=== PATIENT | male | born 1960 | race African-American/Black ===

== ENCOUNTER 2020-05-04 13:16 | Inpatient (IN) | payer OTHER ==
[2020-05-04 14:13] VITALS: BMI 27.8
[2020-05-04] MEDS ORDERED: ONDANSETRON *ODT* 4 MG TABLET SL PRN (15:48)
[2020-05-04] MEDS ORDERED: NICOTINE POLACRILEX 2 MG GUM BUC PRN (15:48)
[2020-05-04] MEDS ORDERED: BISMUTH SUBSALICYLATE 262 MG/15 ML BTL PO PRN (15:48)
[2020-05-04] MEDS ORDERED: IBUPROFEN 400 MG TABLET (FP) PO PRN (15:48)
[2020-05-04] MEDS ORDERED: ACETAMINOPHEN 325 MG TABLET (FP) PO PRN ×2 (15:48)
[2020-05-04] MEDS ORDERED: MAG HYDROX/AL HYDROX/SIMETH 30 ML UNIT-DOSE CUP PO PRN (15:48)
[2020-05-04] MEDS ORDERED: MAGNESIUM HYDROX 2400MG/30ML ORAL SUSPENSION 30 ML CUP PO PRN (15:48)
[2020-05-04] MEDS ORDERED: METHOCARBAMOL 500 MG TABLET PO PRN (15:48)
[2020-05-04] MEDS ORDERED: MENTHOL/PHENOL 1 EACH UD MM PRN (15:48)
[2020-05-04] MEDS ORDERED: MAGNESIUM CITRATE 300 ML BOTTLE PO PRN (15:48)
[2020-05-04] MEDS: chlordiazePOXIDE HCL 25 MG CAPSULE PO SCH ×2 (17:27→22:09)
[2020-05-04] MEDS: hydrOXYzine PAMOATE 25 MG CAPSULE (FP) PO SCH ×2 (19:03→22:10)
[2020-05-04] MEDS: THIAMINE HCL 100 MG TABLET (FP) PO SCH (22:09)
[2020-05-04] MEDS: MELATONIN 5 MG TABLETS PO SCH (22:10)
[2020-05-05] MEDS: chlordiazePOXIDE HCL 25 MG CAPSULE PO PRN (00:32)
[2020-05-05] MEDS: hydrOXYzine PAMOATE 25 MG CAPSULE (FP) PO SCH ×5 (05:40→22:29)
[2020-05-05] MEDS: chlordiazePOXIDE HCL 25 MG CAPSULE PO SCH ×4 (05:40→22:29)
[2020-05-05] MEDS ORDERED: LOPERAMIDE HCL 2 MG CAPSULE PO ONE (10:17)
[2020-05-05 10:19] LABS: HEMATOCRIT 40.5 % (35.4-49); MCH 33.2 pg (25.7-33.7); MCHC 34.6 g/dl (32.0-35.9); MEAN CELL VOLUME 95.7 fl (80-96); MEAN PLT VOLUME 8.5 fl (7.5-11.1); PLATELET COUNT 278 K/MM3 (134-434); POTASSIUM 3.2 mmol/L (3.5-5.1); RBC 4.23 M/mm3 (4.00-5.60); RDW 14.1 % (11.9-15.9); WHITE BLOOD COUNT 7.4 K/mm3 (4.0-10.0)
[2020-05-05 10:24] LABS: CALCIUM 9.6 mg/dL (8.5-10.1)
[2020-05-05 10:25] LABS: ALBUMIN 3.8 g/dl (3.4-5.0); BLOOD UREA NITROGEN 10.8 mg/dL (7-18)
[2020-05-05 10:28] LABS: CREATININE 1.2 mg/dL (0.55-1.3)
[2020-05-05 10:29] LABS: BILIRUBIN,TOTAL 0.7 mg/dL (0.2-1); TOT PROT 7.1 g/dl (6.4-8.2)
[2020-05-05] MEDS: PRENATAL VITAMINS W/ FOLIC ACID TABLET (FP) PO SCH (10:34)
[2020-05-05] MEDS: amLODIPine BESYLATE 10 MG TABLET (FP) PO SCH (10:57)
[2020-05-05] MEDS: CALCIUM 500MG/VIT-D 200 UNITS COMBO TABLET (FP) PO SCH (10:57)
[2020-05-05] MEDS: LISINOPRIL 20 MG TABLET PO SCH (10:57)
[2020-05-05] MEDS ORDERED: POTASSIUM CHLORIDE ORAL LIQUID 20 MEQ/15 ML PO ONE ×2 (11:00→15:00)
[2020-05-05 15:38] LABS: HIV INTERPRETATION NEGATIVE (NEGATIVE)
[2020-05-05] MEDS ORDERED: QUEtiapine FUMARATE 25 MG TABLET PO ONE (22:00)
[2020-05-05] MEDS: TAMSULOSIN HCL 0.4 MG CAP PO SCH (22:28)
[2020-05-05] MEDS: ATORVASTATIN CA 20 MG TABLET (FP) PO SCH (22:29)
[2020-05-05] MEDS: THIAMINE HCL 100 MG TABLET (FP) PO SCH (22:29)
[2020-05-05] MEDS: MELATONIN 5 MG TABLETS PO SCH (22:29)
[2020-05-06] MEDS: chlordiazePOXIDE HCL 25 MG CAPSULE PO SCH ×3 (05:15→17:45)
[2020-05-06] MEDS: hydrOXYzine PAMOATE 25 MG CAPSULE (FP) PO SCH ×5 (05:15→22:23)
[2020-05-06] MEDS: metFORMIN HCL 500 MG TABLET (FP) PO SCH (07:27)
[2020-05-06] MEDS: amLODIPine BESYLATE 10 MG TABLET (FP) PO SCH (10:05)
[2020-05-06] MEDS: LISINOPRIL 20 MG TABLET PO SCH (10:05)
[2020-05-06] MEDS: CALCIUM 500MG/VIT-D 200 UNITS COMBO TABLET (FP) PO SCH (10:05)
[2020-05-06] MEDS: PRENATAL VITAMINS W/ FOLIC ACID TABLET (FP) PO SCH (10:06)
[2020-05-06] MEDS ORDERED: PENICILLIN G BENZATHINE 2,400,000 UNIT/4 ML PFS IM ONE (12:00)
[2020-05-06] MEDS: ATORVASTATIN CA 20 MG TABLET (FP) PO SCH (22:23)
[2020-05-06] MEDS: TAMSULOSIN HCL 0.4 MG CAP PO SCH (22:23)
[2020-05-06] MEDS: THIAMINE HCL 100 MG TABLET (FP) PO SCH (22:23)
[2020-05-06] MEDS: MELATONIN 5 MG TABLETS PO SCH (22:23)
[2020-05-06] MEDS: chlordiazePOXIDE HCL 25 MG CAPSULE PO PRN (22:24)
[2020-05-07] MEDS ORDERED: chlordiazePOXIDE HCL 10 MG CAPSULE PO PRN
[2020-05-07] MEDS: chlordiazePOXIDE HCL 25 MG CAPSULE PO SCH (00:08)
[2020-05-07] MEDS: hydrOXYzine PAMOATE 25 MG CAPSULE (FP) PO SCH ×5 (06:09→22:12)
[2020-05-07] MEDS: chlordiazePOXIDE HCL 10 MG CAPSULE PO SCH ×4 (06:11→22:12)
[2020-05-07] MEDS: metFORMIN HCL 500 MG TABLET (FP) PO SCH (06:12)
[2020-05-07] MEDS: PRENATAL VITAMINS W/ FOLIC ACID TABLET (FP) PO SCH (10:14)
[2020-05-07] MEDS: amLODIPine BESYLATE 10 MG TABLET (FP) PO SCH (10:14)
[2020-05-07] MEDS: CALCIUM 500MG/VIT-D 200 UNITS COMBO TABLET (FP) PO SCH (10:14)
[2020-05-07] MEDS: LISINOPRIL 20 MG TABLET PO SCH (10:14)
[2020-05-07] MEDS: POTASSIUM CHLORIDE TABS 20 MEQ TABLET.ER (FP) PO SCH ×2 (13:57→22:12)
[2020-05-07] MEDS: MELATONIN 5 MG TABLETS PO SCH (22:12)
[2020-05-07] MEDS: TAMSULOSIN HCL 0.4 MG CAP PO SCH (22:12)
[2020-05-07] MEDS: QUEtiapine FUMARATE 25 MG TABLET PO SCH (22:12)
[2020-05-07] MEDS: ATORVASTATIN CA 20 MG TABLET (FP) PO SCH (22:12)
[2020-05-07] MEDS: THIAMINE HCL 100 MG TABLET (FP) PO SCH (22:15)
[2020-05-08] MEDS: chlordiazePOXIDE HCL 10 MG CAPSULE PO SCH ×2 (05:37→18:12)
[2020-05-08] MEDS: hydrOXYzine PAMOATE 25 MG CAPSULE (FP) PO SCH ×5 (05:37→22:18)
[2020-05-08] MEDS: metFORMIN HCL 500 MG TABLET (FP) PO SCH (06:21)
[2020-05-08] MEDS: CALCIUM 500MG/VIT-D 200 UNITS COMBO TABLET (FP) PO SCH (10:26)
[2020-05-08] MEDS: LISINOPRIL 20 MG TABLET PO SCH (10:26)
[2020-05-08] MEDS: PRENATAL VITAMINS W/ FOLIC ACID TABLET (FP) PO SCH (10:26)
[2020-05-08] MEDS: POTASSIUM CHLORIDE TABS 20 MEQ TABLET.ER (FP) PO SCH ×2 (10:26→22:18)
[2020-05-08] MEDS: amLODIPine BESYLATE 10 MG TABLET (FP) PO SCH (10:26)
[2020-05-08 10:41] LABS: POTASSIUM 3.5 mmol/L (3.5-5.1)
[2020-05-08 10:50] LABS: ALBUMIN 4.1 g/dl (3.4-5.0); BLOOD UREA NITROGEN 8.7 mg/dL (7-18); CALCIUM 9.4 mg/dL (8.5-10.1); CREATININE 0.9 mg/dL (0.55-1.3)
[2020-05-08 10:51] LABS: TOT PROT 7.9 g/dl (6.4-8.2)
[2020-05-08 10:52] LABS: BILIRUBIN,TOTAL 0.4 mg/dL (0.2-1)
[2020-05-08] MEDS: busPIRone HCL 5 MG TABLET PO SCH ×2 (14:15→22:18)
[2020-05-08] MEDS: THIAMINE HCL 100 MG TABLET (FP) PO SCH (22:18)
[2020-05-08] MEDS: TAMSULOSIN HCL 0.4 MG CAP PO SCH (22:18)
[2020-05-08] MEDS: ATORVASTATIN CA 20 MG TABLET (FP) PO SCH (22:18)
[2020-05-08] MEDS: QUEtiapine FUMARATE 25 MG TABLET PO SCH (22:18)
[2020-05-08] MEDS: MELATONIN 5 MG TABLETS PO SCH (22:19)
[2020-05-09] MEDS ORDERED: chlordiazePOXIDE HCL 10 MG CAPSULE PO ONE (05:00)
[2020-05-09] MEDS: hydrOXYzine PAMOATE 25 MG CAPSULE (FP) PO SCH (06:25)
[2020-05-09] MEDS: busPIRone HCL 5 MG TABLET PO SCH (06:25)
[2020-05-09] MEDS: metFORMIN HCL 500 MG TABLET (FP) PO SCH (06:25)
[2020-05-09 10:09] VITALS: BP 140/77; PULSE 69; TEMP 96.8
== END 2020-05-09 12:18 | disposition home or self-care (01) | DRG 774 ==
LOC: YASAS 13:16 → Y6N 15:04
PROVIDERS: ADMIT Allergy & Immunology; ATTEND Allergy & Immunology
PROC: HZ2ZZZZ Detoxification Services for Substance Abuse Treatment (ICD-10-PCS; principal; 2020-05-04)
DX: F10.230 Alcohol dependence with withdrawal, uncomplicated (principal); F14.10 Cocaine abuse, uncomplicated; F13.10 Sedative, hypnotic or anxiolytic abuse, uncomplicated; F12.10 Cannabis abuse, uncomplicated; F17.210 Nicotine dependence, cigarettes, uncomplicated; F19.280 Other psychoactive substance dependence with psychoactive substance-induced anxiety disorder; F19.282 Other psychoactive substance dependence with psychoactive substance-induced sleep disorder; F19.24 Other psychoactive substance dependence with psychoactive substance-induced mood disorder; E78.5 Hyperlipidemia, unspecified; E11.9 Type 2 diabetes mellitus without complications; Z79.84 Long term (current) use of oral hypoglycemic drugs; I25.10 Atherosclerotic heart disease of native coronary artery without angina pectoris; I10 Essential (primary) hypertension; Z98.890 Other specified postprocedural states; Z56.0 Unemployment, unspecified
CPT/HCPCS: 36415; 80053; 82962; 84132; 85027; 86593; 86780; 87389; C9803; U0003; U0005

== ENCOUNTER 2020-06-10 18:11 | Inpatient (IN) | payer OTHER ==
[2020-06-10] MEDS ORDERED: HALOPERIDOL LACTATE 5 MG/ML IM ONE (19:26)
[2020-06-10] MEDS ORDERED: LORazepam 2 MG/ML SDV VIAL IM ONE (19:27)
[2020-06-10] MEDS ORDERED: LORazepam 2 MG/ML SDV VIAL ONE ×2 (19:28→20:57)
[2020-06-10] MEDS ORDERED: HALOPERIDOL LACTATE 5 MG/ML ONE (19:28)
[2020-06-10 20:11] LABS: BASO % 0.6 % (0-2.0); EOS % 0.6 % (0-4.5); HEMATOCRIT 41.9 % (35.4-49); HEMOGLOBIN 14.3 GM/dL (11.7-16.9); LYMPH % 50.9 % (8-40); MCH 32.4 pg (25.7-33.7); MCHC 34.1 g/dl (32.0-35.9); MEAN PLT VOLUME 8.6 fl (7.5-11.1); MONO % 8.6 % (3.8-10.2); NEUT % 39.3 % (42.8-82.8); PLATELET COUNT 193 K/MM3 (134-434); RBC 4.41 M/mm3 (4.00-5.60); RDW 13.5 % (11.9-15.9); WHITE BLOOD COUNT 9.3 K/mm3 (4.0-10.0)
[2020-06-10 20:24] LABS: INR 0.92 (0.83-1.09); PROTHROMBIN TIME (PATIENT) 11.2 SEC (9.7-13.0)
[2020-06-10 20:33] LABS: CHLORIDE 104 mmol/L (98-107); SODIUM 145 mmol/L (136-145)
[2020-06-10 20:35] LABS: BLOOD UREA NITROGEN 9.8 mg/dL (7-18); CALCIUM 9.3 mg/dL (8.5-10.1); CO2 27 mmol/L (21-32); GLUCOSE,RANDOM 116 mg/dL (74-106)
[2020-06-10 20:38] LABS: CREATININE 1.1 mg/dL (0.55-1.3); SGOT/AST 45 U/L (15-37); SGPT/ALT 37 U/L (13-61)
[2020-06-10 20:40] LABS: BILIRUBIN,TOTAL 0.4 mg/dL (0.2-1); TOT PROT 7.8 g/dl (6.4-8.2)
[2020-06-10 20:41] LABS: ALK PHOS 72 U/L (45-117); LACTIC ACID 5.3 mmol/L (0.4-2.0)
[2020-06-10] MEDS ORDERED: LACTATED RINGERS SOLUTION 1000 ML INFUS.BAG IV ONE (20:48)
[2020-06-10 20:50] LABS: ANION GAP 13 MMOL/L (8-16)
[2020-06-10] MEDS ORDERED: LORazepam 2 MG/ML SDV VIAL IVPUSH ONE (20:51)
[2020-06-10 21:16] LABS: PH,URINE 7.5 (5.0-8.0); URINE APPEARANCE CLEAR; URINE BILIRUBIN NEGATIVE (NEGATIVE); URINE COLOR YELLOW; URINE GLUCOSE (UA) NEGATIVE (NEGATIVE); URINE KETONE NEGATIVE (NEGATIVE); URINE LEUK ESTERASE NEGATIVE (NEGATIVE); URINE NITRITE NEGATIVE (NEGATIVE); URINE PROTEIN NEGATIVE (NEGATIVE); URINE UROBILINOGEN 0.2 mg/dL (0.2-1.0)
[2020-06-10] MEDS ORDERED: KCL 10 MEQ IVPB 10 MEQ/100 ML INFUS.BAG IVPB SCH (21:30)
[2020-06-10] MEDS ORDERED: SODIUM CHLORIDE 1,000 ML IV STA (22:44)
[2020-06-10] MEDS ORDERED: KCL 10 MEQ IVPB 10 MEQ/100 ML INFUS.BAG IVPB ONE (22:53)
[2020-06-10] MEDS: KCL 10 MEQ IVPB 10 MEQ/100 ML INFUS.BAG IVPB SCH (22:59)
[2020-06-11 01:02] LABS: LACTIC ACID 3.7 mmol/L (0.4-2.0)
[2020-06-11] MEDS ORDERED: FOLIC ACID INJECTION - 1 MG, THIAMINE HCL 100 MG, MULTIVIT INJECTION ADULT 10 ML in SOD... IVPB ONE (01:21)
[2020-06-11 01:38] LABS: COCAINE, UR NEGATIVE ng/ml (CUTOFF=300); METHADONE, UR NEGATIVE ng/ml (CUTOFF=300); OPIATES, URI NEGATIVE ng/ml (CUTOFF=300); PHENCYCLIDINE,URINE NEGATIVE ng/ml (CUTOFF=25); URINE BENZODIAZEPINES NEGATIVE ng/ml (CUTOFF=200)
[2020-06-11 01:39] LABS: URINE AMPHETAMINES NEGATIVE ng/ml (CUTOFF=500); URINE BARBITURATES NEGATIVE ng/ml (CUTOFF=200)
[2020-06-11] MEDS ORDERED: KCL 10 MEQ IVPB 10 MEQ/100 ML INFUS.BAG IVPB ONE ×5 (03:00→18:03)
[2020-06-11] MEDS: KCL 10 MEQ IVPB 10 MEQ/100 ML INFUS.BAG IVPB SCH ×7 (03:09→23:40)
[2020-06-11] MEDS: INSULIN SLIDING SCALE (NOVOLOG) 1 VIAL SQ SCH ×4 (06:44→21:28)
[2020-06-11] MEDS ORDERED: SODIUM CHLORIDE 1,000 ML IV SCH (07:00)
[2020-06-11] MEDS ORDERED: TAMSULOSIN HCL 0.4 MG CAP ONE (07:57)
[2020-06-11] MEDS ORDERED: LORazepam 2 MG/ML SDV VIAL ONE ×2 (08:01→12:09)
[2020-06-11] MEDS: TAMSULOSIN HCL 0.4 MG CAP PO SCH (08:09)
[2020-06-11] MEDS: LORazepam 2 MG/ML SDV VIAL IVPUSH PRN ×3 (08:09→15:34)
[2020-06-11] MEDS ORDERED: MAGNESIUM SULF 50% (8.12 MEQ/2 ML-1 GM VIAL) IVPB STA (08:21)
[2020-06-11] MEDS ORDERED: THIAMINE HCL 100 MG TABLET (FP) ONE (09:22)
[2020-06-11] MEDS ORDERED: FOLIC ACID 1 MG TABLET (FP) ONE (09:22)
[2020-06-11] MEDS ORDERED: MAGNESIUM SULFATE IN WATER 2 GM/50 ML IVPB IVPB ONE (09:23)
[2020-06-11] MEDS ORDERED: ENOXAPARIN NA (PORCINE) 40 MG/0.4 ML DISP.SYRIN SQ ONE (09:23)
[2020-06-11] MEDS: ENOXAPARIN NA (PORCINE) 40 MG/0.4 ML DISP.SYRIN SQ SCH (09:29)
[2020-06-11] MEDS: FOLIC ACID 1 MG TABLET (FP) PO SCH (09:29)
[2020-06-11] MEDS ORDERED: THIAMINE HCL 100 MG TABLET (FP) PO SCH (10:00)
[2020-06-11] MEDS ORDERED: chlordiazePOXIDE HCL 25 MG CAPSULE PO SCH (11:00)
[2020-06-11] MEDS ORDERED: chlordiazePOXIDE HCL 25 MG CAPSULE PO PRN (12:27)
[2020-06-11] MEDS ORDERED: POTASSIUM CHLORIDE ORAL LIQUID 20 MEQ/15 ML PO ONE (12:36)
[2020-06-11] MEDS ORDERED: chlordiazePOXIDE HCL 25 MG CAPSULE ONE ×3 (12:44→16:17)
[2020-06-11] MEDS ORDERED: POTASSIUM CHLORIDE ORAL LIQUID 20 MEQ/15 ML ONE (12:44)
[2020-06-11 13:31] LABS: BASO % 0.6 % (0-2.0); EOS % 0.9 % (0-4.5); HEMATOCRIT 38.9 % (35.4-49); HEMOGLOBIN 13.3 GM/dL (11.7-16.9); MCH 32.4 pg (25.7-33.7); MCHC 34.1 g/dl (32.0-35.9); MEAN CELL VOLUME 94.9 fl (80-96); MEAN PLT VOLUME 8.5 fl (7.5-11.1); MONO % 5.5 % (3.8-10.2); PLATELET COUNT 186 K/MM3 (134-434); RDW 13.9 % (11.9-15.9)
[2020-06-11 13:57] LABS: ALBUMIN 3.7 g/dl (3.4-5.0); BLOOD UREA NITROGEN 8.2 mg/dL (7-18); CALCIUM 8.7 mg/dL (8.5-10.1); MAGNESIUM 2.2 mg/dL (1.8-2.4)
[2020-06-11 13:59] LABS: CREATININE 0.9 mg/dL (0.55-1.3)
[2020-06-11 14:00] LABS: PHOSPHOROUS 2.7 mg/dL (2.5-4.9)
[2020-06-11 14:02] LABS: BILIRUBIN,TOTAL 0.6 mg/dL (0.2-1); TOT PROT 7.2 g/dl (6.4-8.2)
[2020-06-11] MEDS ORDERED: LACTATED RINGERS SOLUTION 1,000 ML with POTASSIUM CHLORIDE 20 MEQ IV ONE (15:09)
[2020-06-11] MEDS: CALCIUM 500MG/VIT-D 200 UNITS COMBO TABLET (FP) PO SCH ×2 (16:15→21:23)
[2020-06-11] MEDS: chlordiazePOXIDE HCL 25 MG CAPSULE PO PRN (16:16)
[2020-06-11] MEDS: chlordiazePOXIDE HCL 25 MG CAPSULE PO SCH ×3 (16:22→22:19)
[2020-06-11 20:29] VITALS: BMI 27.2
[2020-06-11] MEDS: THIAMINE HCL 100 MG TABLET (FP) PO SCH (21:23)
[2020-06-11] MEDS: ATORVASTATIN CA 20 MG TABLET (FP) PO SCH (21:23)
[2020-06-11 21:51] LABS: CHLORIDE 106 mmol/L (98-107); SODIUM 141 mmol/L (136-145)
[2020-06-11 21:53] LABS: BLOOD UREA NITROGEN 6.6 mg/dL (7-18); CALCIUM 8.8 mg/dL (8.5-10.1); CO2 26 mmol/L (21-32); GLUCOSE,RANDOM 83 mg/dL (74-106)
[2020-06-11 21:56] LABS: CREATININE 0.8 mg/dL (0.55-1.3)
[2020-06-11 21:57] LABS: ANION GAP 9 MMOL/L (8-16)
[2020-06-11] MEDS ORDERED: LACTULOSE 20 GM/30 ML UDC (FOR ORAL USE ONLY) PO SCH (22:00)
[2020-06-11] MEDS ORDERED: POTASSIUM CHLORIDE TABS 20 MEQ TABLET.ER (FP) PO ONE (22:06)
[2020-06-12] MEDS: KCL 10 MEQ IVPB 10 MEQ/100 ML INFUS.BAG IVPB SCH (00:45)
[2020-06-12 03:48] LABS: CALCIUM 8.8 mg/dL (8.5-10.1)
[2020-06-12 03:49] LABS: BLOOD UREA NITROGEN 5.9 mg/dL (7-18)
[2020-06-12 03:53] LABS: CREATININE 0.8 mg/dL (0.55-1.3)
[2020-06-12] MEDS: chlordiazePOXIDE HCL 25 MG CAPSULE PO SCH ×4 (05:48→23:46)
[2020-06-12] MEDS: CALCIUM 500MG/VIT-D 200 UNITS COMBO TABLET (FP) PO SCH ×3 (05:49→21:25)
[2020-06-12] MEDS ORDERED: POTASSIUM CHLORIDE TABS 20 MEQ TABLET.ER (FP) PO ONE (06:00)
[2020-06-12] MEDS ORDERED: KCL 10 MEQ IVPB 10 MEQ/100 ML INFUS.BAG IVPB SCH (06:00)
[2020-06-12] MEDS: INSULIN SLIDING SCALE (NOVOLOG) 1 VIAL SQ SCH ×4 (06:02→21:26)
[2020-06-12 07:47] LABS: CALCIUM 9.2 mg/dL (8.5-10.1)
[2020-06-12 07:48] LABS: BLOOD UREA NITROGEN 5.4 mg/dL (7-18); HEMATOCRIT 39.6 % (35.4-49); MAGNESIUM 1.6 mg/dL (1.8-2.4); MCH 33.1 pg (25.7-33.7); MCHC 35.4 g/dl (32.0-35.9); MEAN CELL VOLUME 93.7 fl (80-96); MEAN PLT VOLUME 8.8 fl (7.5-11.1); PLATELET COUNT 196 K/MM3 (134-434); RBC 4.23 M/mm3 (4.00-5.60); RDW 13.7 % (11.9-15.9); WHITE BLOOD COUNT 7.9 K/mm3 (4.0-10.0)
[2020-06-12 07:51] LABS: CREATININE 0.9 mg/dL (0.55-1.3)
[2020-06-12] MEDS ORDERED: MAGNESIUM SULF 50% (8.12 MEQ/2 ML-1 GM VIAL) IVPB ONE (08:23)
[2020-06-12] MEDS ORDERED: DEXTROSE 5%-0.45% SALINE 1,000 ML IV SCH (08:30)
[2020-06-12] MEDS: TAMSULOSIN HCL 0.4 MG CAP PO SCH (08:41)
[2020-06-12] MEDS: ENOXAPARIN NA (PORCINE) 40 MG/0.4 ML DISP.SYRIN SQ SCH (10:05)
[2020-06-12] MEDS: THIAMINE HCL 100 MG TABLET (FP) PO SCH ×2 (10:06→21:25)
[2020-06-12] MEDS: POTASSIUM CHLORIDE TABS 20 MEQ TABLET.ER (FP) PO SCH ×2 (10:06→21:25)
[2020-06-12] MEDS: FOLIC ACID 1 MG TABLET (FP) PO SCH (10:06)
[2020-06-12] MEDS: PANTOPRAZOLE 20 MG TABLET PO SCH (10:06)
[2020-06-12 10:23] LABS: BASO % 0.5 % (0-2.0); EOS % 2.5 % (0-4.5); HEMATOCRIT 39.8 % (35.4-49); HEMOGLOBIN 13.9 GM/dL (11.7-16.9); LYMPH % 30.8 % (8-40); MEAN CELL VOLUME 94.5 fl (80-96); MEAN PLT VOLUME 8.4 fl (7.5-11.1); MONO % 9.3 % (3.8-10.2); NEUT % 56.9 % (42.8-82.8); PLATELET COUNT 193 K/MM3 (134-434); RBC 4.22 M/mm3 (4.00-5.60); RDW 13.5 % (11.9-15.9); WHITE BLOOD COUNT 7.3 K/mm3 (4.0-10.0)
[2020-06-12 10:47] LABS: ALBUMIN 3.7 g/dl (3.4-5.0); CALCIUM 9.3 mg/dL (8.5-10.1)
[2020-06-12 10:48] LABS: BLOOD UREA NITROGEN 5.4 mg/dL (7-18); MAGNESIUM 2.4 mg/dL (1.8-2.4)
[2020-06-12 10:51] LABS: CREATININE 0.8 mg/dL (0.55-1.3); PHOSPHOROUS 2.5 mg/dL (2.5-4.9)
[2020-06-12 10:52] LABS: BILIRUBIN,TOTAL 1.3 mg/dL (0.2-1); TOT PROT 7.3 g/dl (6.4-8.2)
[2020-06-12] MEDS ORDERED: MELATONIN 5 MG TABLETS PO PRN (12:23)
[2020-06-12] MEDS ORDERED: DEXTROSE 5%-0.45% SALINE 990 ML with POTASSIUM CHLORIDE 20 MEQ IV SCH (14:55)
[2020-06-12] MEDS: D5-1/2NS+20 MEQ KCL - 20 MEQ/1,000 ML INFUS.BAG IV SCH (16:58)
[2020-06-12] MEDS: ATORVASTATIN CA 20 MG TABLET (FP) PO SCH (21:25)
[2020-06-13] MEDS ORDERED: chlordiazePOXIDE HCL 25 MG CAPSULE PO SCH ×2 (05:00)
[2020-06-13] MEDS: D5-1/2NS+20 MEQ KCL - 20 MEQ/1,000 ML INFUS.BAG IV SCH (05:12)
[2020-06-13] MEDS: CALCIUM 500MG/VIT-D 200 UNITS COMBO TABLET (FP) PO SCH (05:12)
[2020-06-13] MEDS: INSULIN SLIDING SCALE (NOVOLOG) 1 VIAL SQ SCH (06:27)
[2020-06-13 08:45] LABS: HEMOGLOBIN 14.1 GM/dL (11.7-16.9); MCHC 34.3 g/dl (32.0-35.9); MEAN CELL VOLUME 96.2 fl (80-96); MEAN PLT VOLUME 8.9 fl (7.5-11.1); PLATELET COUNT 195 K/MM3 (134-434); RBC 4.26 M/mm3 (4.00-5.60); RDW 13.5 % (11.9-15.9); WHITE BLOOD COUNT 8.6 K/mm3 (4.0-10.0)
[2020-06-13 09:03] LABS: CALCIUM 9.2 mg/dL (8.5-10.1)
[2020-06-13 09:04] LABS: ALBUMIN 3.8 g/dl (3.4-5.0); BLOOD UREA NITROGEN 5.8 mg/dL (7-18); MAGNESIUM 1.8 mg/dL (1.8-2.4)
[2020-06-13 09:07] LABS: CREATININE 0.9 mg/dL (0.55-1.3); PHOSPHOROUS 2.2 mg/dL (2.5-4.9)
[2020-06-13 09:08] LABS: BILIRUBIN,TOTAL 1.1 mg/dL (0.2-1); TOT PROT 7.5 g/dl (6.4-8.2)
[2020-06-13] MEDS: ENOXAPARIN NA (PORCINE) 40 MG/0.4 ML DISP.SYRIN SQ SCH (09:22)
[2020-06-13] MEDS: chlordiazePOXIDE HCL 25 MG CAPSULE PO PRN (09:22)
[2020-06-13] MEDS: PANTOPRAZOLE 20 MG TABLET PO SCH (09:24)
[2020-06-13] MEDS: THIAMINE HCL 100 MG TABLET (FP) PO SCH (09:24)
[2020-06-13] MEDS: FOLIC ACID 1 MG TABLET (FP) PO SCH (09:24)
[2020-06-13] MEDS: TAMSULOSIN HCL 0.4 MG CAP PO SCH (09:24)
[2020-06-13] MEDS ORDERED: amLODIPine BESYLATE 10 MG TABLET (FP) PO SCH (10:00)
[2020-06-13] MEDS ORDERED: POTASSIUM CHLORIDE TABS 20 MEQ TABLET.ER (FP) PO SCH (10:00)
[2020-06-13] MEDS ORDERED: LISINOPRIL 20 MG TABLET PO SCH (10:00)
[2020-06-13 12:15] VITALS: BP 140/80; PULSE 70; TEMP 98
[2020-06-14] MEDS ORDERED: chlordiazePOXIDE HCL 10 MG CAPSULE PO PRN
[2020-06-14] MEDS ORDERED: chlordiazePOXIDE 5 MG CAPSULE PO PRN
[2020-06-14] MEDS ORDERED: chlordiazePOXIDE 5 MG CAPSULE PO SCH (05:00)
[2020-06-14] MEDS ORDERED: chlordiazePOXIDE HCL 10 MG CAPSULE PO SCH (05:00)
[2020-06-15] MEDS ORDERED: chlordiazePOXIDE HCL 10 MG CAPSULE PO SCH (05:00)
[2020-06-15] MEDS ORDERED: chlordiazePOXIDE 5 MG CAPSULE PO SCH (05:00)
[2020-06-15 14:09] LABS: HEP B CORE AB, TOT Positive (Negative)
[2020-06-16] MEDS ORDERED: chlordiazePOXIDE 5 MG CAPSULE PO ONE ×2 (05:00)
[2020-06-19 15:14] LABS: RENIN ACTIVITY(PRA) 2.653 ng/mL/hr (0.167-5.380)
== END 2020-06-13 11:43 | disposition left against medical advice (07) | DRG 770 ==
LOC: JER 18:11 → JERBED 22:43 → OBSVTOIN 06-11 15:42 → J6S 06-11 19:38
PROVIDERS: ADMIT Hospitalist; ATTEND Internal Medicine
DX: F10.220 Alcohol dependence with intoxication, uncomplicated (principal); G92 Toxic encephalopathy; K92.0 Hematemesis; E87.2 Acidosis; E87.6 Hypokalemia; I10 Essential (primary) hypertension; E11.9 Type 2 diabetes mellitus without complications; F17.210 Nicotine dependence, cigarettes, uncomplicated; Z79.84 Long term (current) use of oral hypoglycemic drugs; N40.0 Benign prostatic hyperplasia without lower urinary tract symptoms; E46 Unspecified protein-calorie malnutrition; E86.0 Dehydration; I25.10 Atherosclerotic heart disease of native coronary artery without angina pectoris; E27.9 Disorder of adrenal gland, unspecified; E83.42 Hypomagnesemia; K86.89 Other specified diseases of pancreas; R74.01 Elevation of levels of liver transaminase levels; K72.90 Hepatic failure, unspecified without coma
CPT/HCPCS: 36415; 70450-TC; 71045-TC-FY; 71260-TC; 72125-TC; 73523-TC-FY; 74177-TC; 80048; 80053; 80307; 81003; 82088; 82140; 82962; 83605; 83735; 84100; 84244; 84484; 85025; 85027; 85610; 85730; 86704; 86706; 86707; 86708; 86709; 86803; 86850; 86900; 86901; 87086; 87340; 93005; 93010; 97116-GP; 97161-GP; 99291; C9803; G0378; Q9967; U0003; U0005

== ENCOUNTER 2020-07-27 20:33 | Inpatient (IN) | payer OTHER ==
[2020-07-27 22:21] VITALS: BMI 27.1
[2020-07-27] MEDS ORDERED: ONDANSETRON *ODT* 4 MG TABLET SL PRN (22:33)
[2020-07-27] MEDS ORDERED: MAGNESIUM CITRATE 300 ML BOTTLE PO PRN (22:33)
[2020-07-27] MEDS ORDERED: MAGNESIUM HYDROX 2400MG/30ML ORAL SUSPENSION 30 ML CUP PO PRN (22:33)
[2020-07-27] MEDS ORDERED: MENTHOL/PHENOL 1 EACH UD MM PRN (22:33)
[2020-07-27] MEDS ORDERED: BISMUTH SUBSALICYLATE 524 MG/30 ML PO PRN (22:33)
[2020-07-27] MEDS ORDERED: NICOTINE POLACRILEX 2 MG GUM BUC PRN (22:33)
[2020-07-27] MEDS ORDERED: hydrOXYzine PAMOATE 25 MG CAPSULE (FP) PO PRN (22:33)
[2020-07-27] MEDS ORDERED: MAG HYDROX/AL HYDROX/SIMETH 30 ML UNIT-DOSE CUP PO PRN (22:33)
[2020-07-27] MEDS ORDERED: TRIMETHOBENZAMIDE HCL 200MG/2ML INJ IM ONE (22:35)
[2020-07-28] MEDS: diazePAM 5 MG TABLET PO SCH ×5 (01:19→22:06)
[2020-07-28] MEDS: IBUPROFEN 400 MG TABLET (FP) PO PRN (01:23)
[2020-07-28] MEDS: metFORMIN HCL 500 MG TABLET (FP) PO SCH (06:54)
[2020-07-28] MEDS: PRENATAL VITAMINS W/ FOLIC ACID TABLET (FP) PO SCH (09:22)
[2020-07-28] MEDS: LISINOPRIL 20 MG TABLET PO SCH (09:22)
[2020-07-28 10:43] LABS: HEMATOCRIT 41.2 % (35.4-49); HEMOGLOBIN 13.8 GM/dL (11.7-16.9); MCH 31.6 pg (25.7-33.7); MCHC 33.4 g/dl (32.0-35.9); MEAN CELL VOLUME 94.7 fl (80-96); MEAN PLT VOLUME 8.4 fl (7.5-11.1); PLATELET COUNT 217 10^3/uL (134-434); RBC 4.35 M/mm3 (4.00-5.60); RDW 13.9 % (11.9-15.9); WHITE BLOOD COUNT 5.7 K/mm3 (4.0-10.0)
[2020-07-28 10:45] LABS: CHLORIDE 109 mmol/L (98-107); SODIUM 146 mmol/L (136-145)
[2020-07-28 11:18] LABS: BLOOD UREA NITROGEN 9.7 mg/dL (7-18)
[2020-07-28 11:33] LABS: CALCIUM 8.6 mg/dL (8.5-10.1)
[2020-07-28 11:34] LABS: ALBUMIN 3.6 g/dl (3.4-5.0)
[2020-07-28 11:37] LABS: CREATININE 0.9 mg/dL (0.55-1.3)
[2020-07-28 11:38] LABS: GLUCOSE,RANDOM 75 mg/dL (74-106); SGOT/AST 78 U/L (15-37)
[2020-07-28 11:39] LABS: CO2 25 mmol/L (21-32); TOT PROT 6.9 g/dl (6.4-8.2)
[2020-07-28 11:40] LABS: ALK PHOS 55 U/L (45-117)
[2020-07-28 11:45] LABS: SGPT/ALT 40 U/L (13-61)
[2020-07-28 11:49] LABS: ANION GAP 12 MMOL/L (8-16)
[2020-07-28] MEDS ORDERED: POTASSIUM CHLORIDE ORAL LIQUID 20 MEQ/15 ML PO ONE (11:54)
[2020-07-28 11:58] LABS: BILIRUBIN,TOTAL 0.4 mg/dL (0.2-1)
[2020-07-28] MEDS: diazePAM 5 MG TABLET PO PRN ×2 (11:58→19:39)
[2020-07-28] MEDS: busPIRone HCL 5 MG TABLET PO SCH ×2 (15:31→22:05)
[2020-07-28] MEDS: POTASSIUM CHLORIDE ORAL LIQUID 20 MEQ/15 ML PO SCH (22:03)
[2020-07-28] MEDS: ATORVASTATIN CA 20 MG TABLET (FP) PO SCH (22:05)
[2020-07-28] MEDS: THIAMINE HCL 100 MG TABLET (FP) PO SCH (22:05)
[2020-07-28] MEDS: QUEtiapine FUMARATE 25 MG TABLET PO SCH (22:05)
[2020-07-28] MEDS: MELATONIN 5 MG TABLETS PO SCH (22:05)
[2020-07-28] MEDS: TAMSULOSIN HCL 0.4 MG CAP PO SCH (22:05)
[2020-07-29] MEDS: busPIRone HCL 5 MG TABLET PO SCH ×3 (05:28→22:06)
[2020-07-29] MEDS: diazePAM 5 MG TABLET PO SCH ×3 (05:28→22:07)
[2020-07-29] MEDS: IBUPROFEN 400 MG TABLET (FP) PO PRN (05:30)
[2020-07-29] MEDS: metFORMIN HCL 500 MG TABLET (FP) PO SCH (07:06)
[2020-07-29] MEDS: METHOCARBAMOL 500 MG TABLET PO PRN ×2 (10:15→17:26)
[2020-07-29] MEDS: POTASSIUM CHLORIDE ORAL LIQUID 20 MEQ/15 ML PO SCH ×2 (10:15→22:06)
[2020-07-29] MEDS: PRENATAL VITAMINS W/ FOLIC ACID TABLET (FP) PO SCH (10:15)
[2020-07-29] MEDS: diazePAM 5 MG TABLET PO PRN ×2 (10:15→17:26)
[2020-07-29] MEDS: LISINOPRIL 20 MG TABLET PO SCH (10:15)
[2020-07-29] MEDS: ATORVASTATIN CA 20 MG TABLET (FP) PO SCH (22:06)
[2020-07-29] MEDS: QUEtiapine FUMARATE 25 MG TABLET PO SCH (22:06)
[2020-07-29] MEDS: THIAMINE HCL 100 MG TABLET (FP) PO SCH (22:06)
[2020-07-29] MEDS: TAMSULOSIN HCL 0.4 MG CAP PO SCH (22:06)
[2020-07-29] MEDS: MELATONIN 5 MG TABLETS PO SCH (22:28)
[2020-07-30] MEDS: diazePAM 5 MG TABLET PO SCH ×2 (05:19→17:36)
[2020-07-30] MEDS: busPIRone HCL 5 MG TABLET PO SCH ×3 (05:19→22:02)
[2020-07-30] MEDS: METHOCARBAMOL 500 MG TABLET PO PRN ×3 (05:19→16:36)
[2020-07-30] MEDS: metFORMIN HCL 500 MG TABLET (FP) PO SCH (07:17)
[2020-07-30] MEDS: IBUPROFEN 400 MG TABLET (FP) PO PRN ×3 (08:42→22:05)
[2020-07-30] MEDS: PRENATAL VITAMINS W/ FOLIC ACID TABLET (FP) PO SCH (10:15)
[2020-07-30] MEDS: LISINOPRIL 20 MG TABLET PO SCH (10:15)
[2020-07-30] MEDS ORDERED: POTASSIUM CHLORIDE ORAL LIQUID 20 MEQ/15 ML PO ONE ×2 (12:27→22:00)
[2020-07-30] MEDS: TAMSULOSIN HCL 0.4 MG CAP PO SCH (22:02)
[2020-07-30] MEDS: ATORVASTATIN CA 20 MG TABLET (FP) PO SCH (22:02)
[2020-07-30] MEDS: MELATONIN 5 MG TABLETS PO SCH (22:02)
[2020-07-30] MEDS: QUEtiapine FUMARATE 25 MG TABLET PO SCH (22:02)
[2020-07-30] MEDS: THIAMINE HCL 100 MG TABLET (FP) PO SCH (22:02)
[2020-07-30] MEDS: diazePAM 5 MG TABLET PO PRN (22:06)
[2020-07-31] MEDS: busPIRone HCL 5 MG TABLET PO SCH (05:39)
[2020-07-31] MEDS: METHOCARBAMOL 500 MG TABLET PO PRN (05:41)
[2020-07-31] MEDS ORDERED: diazePAM 5 MG TABLET PO ONE (06:00)
[2020-07-31] MEDS: metFORMIN HCL 500 MG TABLET (FP) PO SCH (07:03)
[2020-07-31] MEDS: PRENATAL VITAMINS W/ FOLIC ACID TABLET (FP) PO SCH (09:02)
[2020-07-31] MEDS: LISINOPRIL 20 MG TABLET PO SCH (09:02)
[2020-07-31] MEDS: IBUPROFEN 400 MG TABLET (FP) PO PRN (09:02)
[2020-07-31 09:34] VITALS: BP 152/83; PULSE 67; TEMP 97.8
== END 2020-07-31 09:38 | disposition home or self-care (01) | DRG 774 ==
LOC: YASAS 20:33 → Y6N 07-28 00:26
PROVIDERS: ADMIT Allergy & Immunology; ATTEND Allergy & Immunology
PROC: HZ2ZZZZ Detoxification Services for Substance Abuse Treatment (ICD-10-PCS; principal; 2020-07-28)
DX: F10.230 Alcohol dependence with withdrawal, uncomplicated (principal); F10.220 Alcohol dependence with intoxication, uncomplicated; F14.10 Cocaine abuse, uncomplicated; F17.210 Nicotine dependence, cigarettes, uncomplicated; F32.9 Major depressive disorder, single episode, unspecified; F19.24 Other psychoactive substance dependence with psychoactive substance-induced mood disorder; F19.282 Other psychoactive substance dependence with psychoactive substance-induced sleep disorder; I10 Essential (primary) hypertension; I25.10 Atherosclerotic heart disease of native coronary artery without angina pectoris; M54.5 Low back pain; G89.29 Other chronic pain; E11.9 Type 2 diabetes mellitus without complications; Z62.810 Personal history of physical and sexual abuse in childhood; Z79.84 Long term (current) use of oral hypoglycemic drugs; Z86.79 Personal history of other diseases of the circulatory system
CPT/HCPCS: 36415; 80053; 82962; 84132; 85027; 86593; 86780; C9803; Q0162; U0003; U0005